=== PATIENT | male | born 1985 | race Caucasian/White ===

== ENCOUNTER 2021-06-30 09:56 | Emergency (ER) | payer BC, SELFPAY ==
[2021-06-30 09:57] VITALS: BP 124/76; PULSE 89; RESP 15; TEMP 36.1; O2SAT 100; BMI 24.2
--- NOTE | 2021-06-30 10:13 | EKG12_ITS ---
Test Reason : PALP Blood Pressure : / mmHG Vent. Rate : 104 BPM Atrial Rate : 104 BPM P-R Int : 136 ms QRS Dur : 098 ms QT Int : 328 ms P-R-T Axes : 076 088 067 degrees QTc Int : 431 ms Sinus tachycardia Otherwise normal ECG Confirmed by EDWIN URBINA, ROSALIE ([id number]), continuity editor NITHYA TINEO ([id number]) on 07/04/2021 9:50:48 AM Referred By: Confirmed By:ARIANA PINEDA MD
--- NOTE | 2021-06-30 10:14 | EX.ED.DYSGE1 ---
HPI <LANDON Toscano - Last Filed: 06/30/21 11:26> History of Present Illness Chief Complaint: Palpitations Narrative Narrative: 35-year-old male with no significant medical history presents to the emergency department with complaints of palpitations for 8 days. Patient has has history of these palpitations however they went away after only a day or 2. Patient denies any drug use, patient states that he does drink coffee, he does chew nicotine however they are not into excess. Over the last several days he also has been trying to decrease this. Patient denies any chest pain or shortness of breath, patient denies any recent travel, history of blood clots in the legs or lung. Patient did have some extra stress greater than 2 weeks ago secondary to money however he states that has since resolved. Patient states today he got nervous because been greater than 8 days and is here for evaluation. PFSH <LANDON Toscano - Last Filed: 06/30/21 11:26> [facility] Home Medications NK 06/30/21 [History Last Taken Unknown] Allergy/AdvReac Type Severity Reaction Status Date / Time No Known Allergies Allergy Verified 06/30/21 09:59 Surgical History (Updated 06/30/21 @ 10:04 by Buddy Lake RN) Hx of appendectomy Hx of LASIK Social History Smoking Status: Current every day smoker tobacco type: smokeless tobacco ROS <LANDON Toscano - Last Filed: 06/30/21 11:26> ROS ED ROS Narrative Constitutional: Negative for fever, chills, weight loss, weakness Eyes: Negative for vision loss, vision change, double vision ENT: Negative for any sore throat, ear pain, congestion Cardiovascular: Negative for any chest pain, tightness. Positive for palpitations, heart racing Respiratory: Negative for any cough, sputum production, hemoptysis, shortness of breath, shortness of breath on exertion, orthopnea Gastrointestinal: Negative for any abdominal pain, nausea, vomiting, diarrhea, constipation, blood in stool, blood in vomit : Negative for any urinary frequency, incontinence, dysuria, retention, blood in urine Muscle skeletal: Negative for any muscle joint pain, stiffness, myalgias, arthralgias, neck pain, back pain Neurological: Negative for any headache, dizziness, syncope, numbness or tingling Skin: Negative for any rashes, lumps, itching, abrasions, lacerations Psychiatric: Negative for any depression, anxiety, stress, suicidal ideation, homicidal ideation Hematologic: Negative for any easy bruising, excessive bruising, easy bleeding Allergies: Negative for any eczema, hives, rash EXAM <LANDON Toscano - Last Filed: 06/30/21 11:26> Physical Exam Narrative Exam Narrative: Vital signs reviewed. HEET: Head normocephalic atraumatic, TMs clear bilaterally. Posterior pharynx is clear, moist mucous membranes. Nares clear bilaterally. Neck: Supple with no lymphadenopathy or tenderness. No signs of meningismus, negative jolt sign. Cardiac: Regular rate and rhythm no murmurs gallops or rubs, equal peripheral pulses bilaterally. Respiratory: Lungs clear to auscultation bilaterally. No chest tenderness. Abdomen: Soft, nontender, nondistended. No abdominal bruit or pulsatile masses. No hepatosplenomegaly Extremities: No peripheral edema, no signs of gross trauma or deformity. Active full range of motion of all extremities. Neuro: Cranial nerves II through XII intact, no focal neurological deficits. Skin: Clean dry and intact with no rash, purpura, petechiae, vesicles or pustules. Backslash flank: No CVA tenderness, no midline spinal tenderness, no deformity. Psych: Normal mood and affect. No SI, HI or acute psychosis. Const Vital Signs: 06/30/21 09:57 06/30/21 10:04 06/30/21 10:18 Temperature 96.9 F L Temperature Source Temporal Pulse Rate 89 Respiratory Rate 15 Respiratory Effort Normal Non-Labored Respiratory Pattern Normal Blood Pressure 124/76 H Blood Pressure Mean 92 Pulse Ox 100 Oxygen Delivery Method Room Air Room Air 06/30/21 11:37 Temperature Temperature Source Pulse Rate 75 Respiratory Rate 16 Respiratory Effort Respiratory Pattern Blood Pressure 96/63 Blood Pressure Mean 74 Pulse Ox 99 Oxygen Delivery Method Room Air Positive well nourished and well developed General Appearance ED: well developed <Dr. Gennaro Cruz DO - Last Filed: 06/30/21 14:00> Physical Exam Const Vital Signs: 06/30/21 09:57 06/30/21 10:04 06/30/21 10:18 Temperature 96.9 F L Temperature Source Temporal Pulse Rate 89 Respiratory Rate 15 Respiratory Effort Normal Non-Labored Respiratory Pattern Normal Blood Pressure 124/76 H Blood Pressure Mean 92 Pulse Ox 100 Oxygen Delivery Method Room Air Room Air 06/30/21 11:37 Temperature Temperature Source Pulse Rate 75 Respiratory Rate 16 Respiratory Effort Respiratory Pattern Blood Pressure 96/63 Blood Pressure Mean 74 Pulse Ox 99 Oxygen Delivery Method Room Air [facility] <MEY ToscanoBayron - Last Filed: 06/30/21 11:26> [facility] Narrative Medical decision making narrative: Patient appears well, patient appears nontoxic, vital signs are stable. Patient presents to the emergency department with 8 days of palpitations. Patient did receive a full cardiac work-up here, patient's laboratory values were grossly unremarkable, negative high-sensitivity troponin. Patient thyroid-stimulating hormone was also normal at 1.67. Patient's EKG was unremarkable, patient's vital signs remained stable with a heart rate of 75 blood pressure 120 over 80s. At this time, there is no indication, evidence that this is the patient's heart, I believe the patient has some underlying anxiety however patient will follow up with his PCP. Patient is happy with the plan of care and instructed to follow-up. Lab Data Labs: Laboratory Results - last 24 hr 06/30/21 06/30/21 10:05 10:05 WBC 7.3 RBC 5.59 Hgb 15.5 Hct 47.0 MCV 84.1 MCH 27.7 MCHC 33.0 RDW Std Deviation 40.9 RDW Coeff of Aakash 13.2 Plt Count 284 MPV 11.3 Immature Gran % (Auto) 0.100 Neut % (Auto) 55.9 Lymph % (Auto) 34.2 [place] % (Auto) 7.8 Eos % (Auto) 1.5 Baso % (Auto) 0.5 Absolute Neuts (auto) 4.1 Absolute Lymphs (auto) 2.50 Nucleated RBC % 0 Sodium 136 Potassium 4.0 Chloride 103 Carbon Dioxide 27.0 Anion Gap 6 BUN 14 Creatinine 1.00 Estim Creat Clear Calc 101.14 Est GFR (MDRD) Af Amer 108 Est GFR (MDRD) Non-Af 89 BUN/Creatinine Ratio 14.0 Glucose 105 Calcium 9.8 Troponin I High Sens < 3 L TSH 1.67 Radiography Diagnostic Testing: Clinical Impression(s) from Imaging Studies Chest X-Ray 06/30/21 10:25 IMPRESSION: Normal x-ray examination of the chest. Electronically Signed: Julien Garcia MD at 10:42 EDT , EKG Sinus tachycardia: Comments: Sinus tachycardia, rate of 104 bpm, OH interval 136 ms, QRS duration 98 ms, no acute ST elevation, no acute infarct noted <Dr. Gennaro Cruz, DO - Last Filed: 06/30/21 14:00> [facility] MDM Narrative Medical decision making narrative: I have personally performed a face to face assessment of the patient and have reviewed the SUKHWINDER Note. I performed a substantive portion of the visit. This is a 35-year-old male presenting with palpitations and states that he has previously had a Holter monitor which was negative. Today he had an EKG performed which is sinus tachycardia with a ventricular rate of 104 bpm without sign of ischemic change or dysrhythmia on my interpretation. Chest x-ray on my interpretation shows no acute cardiopulmonary process. High-sensitivity troponin and lab work are all normal. TSH within normal limits. All of his other vital signs are normal. Given his negative work-up I feel he safe for discharge home. He is counseled to follow-up with his PCP to ensure resolution. Impression: 1. Palpitations Lab Data Attestation: I reviewed the patient's lab results. Labs: Laboratory Results - last 24 hr 06/30/21 06/30/21 10:05 10:05 WBC 7.3 RBC 5.59 Hgb 15.5 Hct 47.0 MCV 84.1 MCH 27.7 MCHC 33.0 RDW Std Deviation 40.9 RDW Coeff of Aakash 13.2 Plt Count 284 MPV 11.3 Immature Gran % (Auto) 0.100 Neut % (Auto) 55.9 Lymph % (Auto) 34.2 [place] % (Auto) 7.8 Eos % (Auto) 1.5 Baso % (Auto) 0.5 Absolute Neuts (auto) 4.1 Absolute Lymphs (auto) 2.50 Nucleated RBC % 0 Sodium 136 Potassium 4.0 Chloride 103 Carbon Dioxide 27.0 Anion Gap 6 BUN 14 Creatinine 1.00 Estim Creat Clear Calc 101.14 Est GFR (MDRD) Af Amer 108 Est GFR (MDRD) Non-Af 89 BUN/Creatinine Ratio 14.0 Glucose 105 Calcium 9.8 Troponin I High Sens < 3 L TSH 1.67 Radiography Diagnostic Testing: Clinical Impression(s) from Imaging Studies Chest X-Ray 06/30/21 10:25 IMPRESSION: Normal x-ray examination of the chest. Electronically Signed: Julien Garcia MD at 10:42 EDT , Discharge Plan Triage Chief Complaint: Palpitations ED Midlevel Provider: Bryant Peters ED Provider: Gennaro Cruz Dx/Rx/DC Orders Clinical Impression: Heart palpitations Instructions: Understanding Heart Palpitations, ED Palpitations Prescriptions: No Action NK RF: 0 Primary Care Provider: Care Physician,No Primary Referrals: Care Physician,No Primary [Primary Care Provider] - Activity Restrictions/Additional Instructions: You had a negative cardiac work-up today, please follow-up with your PCP. Print Language: Telugu Disposition Disposition: Home, Self Care Discharge Date/Time: 06/30/21 11:37
--- NOTE | 2021-06-30 10:25 | RAD_ITS ---
STUDY: X-RAY CHEST REASON FOR EXAM: Male, 35 years old. Chest pain TECHNIQUE: Single AP portable view of the chest. COMPARISON: None. FINDINGS: EKG electrodes are seen. The lungs are clear and expanded. There is no demonstrated pleural abnormality. Normal size heart. Normal mediastinum and alex. Normal visualized pulmonary arteries. Normal visualized aortic arch and descending thoracic aorta. Normal visualized thoracic spine. Normal visualized ribs, clavicles, and shoulders. There is no demonstrated abnormality of the visualized soft tissue structures of the upper abdomen. RAD/Chest 1 View (Portable) IMPRESSION: Normal x-ray examination of the chest. Electronically Signed: Julien Garcia MD at 10:42 EDT ,
[2021-06-30 10:28] LABS: Absolute Neutrophil Count 4.1 X10^3/uL (2.0-7.7); Basophil# 0.04 X10^3/uL; Basophil% 0.5 % (0-1); Eosinophil# 0.11 X10^3/uL; Eosinophils% 1.5 % (0-5); Hemoglobin 15.5 g/dL (13.0-16.5); Lymphocyte % 34.2 % (19-41); Mean Corpuscular Hgb 27.7 pg (27.0-32.0); Mean Corpuscular Volume 84.1 fL (80-94); Mean Platelet Vol. 11.3 fl (6.2-12.0); Monocyte# 0.57 X10^3/uL; Monocyte% 7.8 % (0-10); NRBC Flagged by Analyzer 0 % (0-5); Neutrophil # 4.09 X10^3/uL (2.7-7.7); Neutrophil % 55.9 % (47-70); Platelet Count 284 K/mm3 (150-450); RBC Distribution Width CV 13.2 % (11.6-14.6); RBC Distribution Width SD 40.9 fl (35.1-43.9); Red Blood Count 5.59 M/mm3 (4.6-6.2); White Blood Count 7.3 K/mm3 (4.4-11.0)
[2021-06-30 10:51] LABS: Anion Gap 6 (5-15); BUN 14 mg/dL (7-18); Calcium,Total 9.8 mg/dL (8.5-10.1); Chloride 103 mmol/L (98-107); EST Glomerular Filtration Rate 89 mL/min (>60); Est Glom Filt Rate - Afr Amer 108 mL/min (>60); Estimated Creatinine Clearance 101.14 ml/min; Glucose 105 mg/dL (74-106); Sodium Level 136 mmol/L (136-145); Thyroid Stim Hormone (TSH) 1.67 uIU/mL (0.358-3.74); Troponin-I HS (w/2H Reflex) < 3 pg/mL (3.0-78.0)
[2021-06-30 11:37] VITALS: BP 96/63; PULSE 75; RESP 16; O2SAT 99
[2021-06-30 12:21] LABS: Reflex Troponin-HS? (from REC) Y
== END 2021-06-30 11:37 | disposition home or self-care (01) ==
PROVIDERS: Nurse Practitioner; Emergency Provider Student in an Organized Health Care Education/Training Program; Visit Provider Student in an Organized Health Care Education/Training Program
DX: R00.2 Palpitations (principal); F17.220 Nicotine dependence, chewing tobacco, uncomplicated
CPT/HCPCS: 71045; 80048; 84443; 84484; 85025; 93005; 99284; A4216